=== PATIENT | female | born 1985 | race Caucasian/White ===

== ENCOUNTER 2021-01-15 12:28 | Emergency (ER) | payer MEDICAID ==
[~2021-01-15] VITALS: Ht 165.1 cm; Wt 66.0 kg
[2021-01-15] MEDS ORDERED: ACET-2708 PO (12:45)
[2021-01-15] MEDS ORDERED: AMOX-494 MT (12:45)
[2021-01-15] MEDS ORDERED: IBUPROFEN 600MG TABLET PO STA (13:21)
[2021-01-15] MEDS ORDERED: IBUP-2029 PO (13:50)
[2021-01-15] MEDS ORDERED: CIPDEX RIGHT EAR (13:50)
[2021-01-15 14:02] VITALS: BP 92/61
== END 2021-01-15 14:04 | disposition home or self-care (01) ==
LOC: ER 12:28
DX: H61.21 Impacted cerumen, right ear (principal); H60.91 Unspecified otitis externa, right ear; H92.01 Otalgia, right ear
CPT/HCPCS: 99283